=== PATIENT | male | born 1970 | race Caucasian/White ===

== ENCOUNTER 2023-04-26 16:50 | Inpatient (IN) ==
[2023-04-26] MEDS ORDERED: IOPAMIDOL 100 ML BOTTLE IV ONE (16:51)
[2023-04-26 17:38] LABS: Basophils # (Auto) 0.02 K/mcL (0.00-0.30); Basophils % (Auto) 0.2 % (0.0-2.0); Eosinophils # (Auto) 0 K/mcL (0.00-0.70); Eosinophils % (Auto) 0 % (0.0-7.0); Hematocrit 40.2 % (40.1-51.0); Hemoglobin 12.7 g/dL (13.7-17.5); Lymphocytes # (Auto) 0.83 K/mcL (1.50-4.80); Lymphocytes % (Auto) 8.2 % (15.5-49.0); Mean Cell Volume 92.2 fL (80.0-100.0); Mean Corpuscular HGB Conc 31.6 g/dL (31.0-36.0); Mean Platelet Volume 8.2 fL (8.8-12.5); Monocytes # (Auto) 0.41 K/mcL (0.10-0.90); Neutrophils % (Auto) 87.5 % (38.0-78.0); Platelet Count 417 K/mcL (140-440); RBC 4.36 M/mcL (4.63-6.08); Red Cell Distribution Width 13.4 % (11.5-14.5); WBC 10.2 K/mcL (4.5-11.0)
[2023-04-26 17:59] LABS: ALT/SGPT 10 U/L (<40); AST/SGOT 26 U/L (<40); Albumin 3.9 gm/dL (3.2-5.2); Albumin/Globulin Ratio 1.6 (1.0-2.3); Alkaline Phosphatase 91 U/L (39-117); Bilirubin,Total < 0.2 mg/dL (0.1-1.0); Blood Urea Nitrogen 15 mg/dL (6-20); Calcium 8.8 mg/dL (8.6-10.4); Carbon Dioxide 24 mmol/L (22-30); Chloride 103 mmol/L (96-108); Globulin 2.5 gm/dL (2.2-3.7); Glomerular Filtration Rate 84; Glucose 109 mg/dL (70-105)
[2023-04-26 19:03] LABS: proBNP 53.6 pg/mL (<125.0)
[2023-04-26] MEDS: cefTRIAXone 1 GM VIAL IV ONE (19:40)
[2023-04-26] MEDS: 0.9 % SODIUM CHLORIDE 1,000 ML IV ONE (19:40)
[2023-04-26] MEDS: ONDANSETRON 4 MG/2 ML VIAL IV ONE (20:00)
[2023-04-26] MEDS: AMOXICILLIN/POTASSIUM CLAV 875 MG TABLET PO ONE (20:01)
[2023-04-26] MEDS: AZITHROMYCIN 250 MG TABLET PO ONE (20:01)
[2023-04-26] MEDS ORDERED: MAGNESIUM SULFATE 2 GM/50 ML BAG IV PRN (23:09)
[2023-04-26] MEDS ORDERED: BISACODYL 10 MG SUPP.RECT PR PRN (23:09)
[2023-04-26] MEDS ORDERED: ONDANSETRON 4 MG ODT TABLET SL PRN (23:09)
[2023-04-26] MEDS ORDERED: POTASSIUM CHLORIDE 20 MEQ PACKET PO PRN (23:09)
[2023-04-26] MEDS ORDERED: POLYETHYLENE GLYCOL 3350 17 GM PACKET PO PRN (23:09)
[2023-04-26] MEDS ORDERED: ONDANSETRON 4 MG/2 ML VIAL IV PRN (23:09)
[2023-04-26] MEDS: 0.9 % SODIUM CHLORIDE 1,000 ML IV SCH (23:20)
[2023-04-26] MEDS: HYDROcodone/APAP 5/325MG TABLET PO PRN (23:51)
[2023-04-26] MEDS: HYDROcodone/APAP 5/325MG TABLET PO ONE (23:51)
[2023-04-27] MEDS: cefTRIAXone 2 GM in DEXTROSE 5% IN WATER 50 ML IV SCH ×2 (00:20→09:02)
[2023-04-27] MEDS: AZITHROMYCIN 500 MG in DEXTROSE 5% IN WATER 250 ML IV SCH ×2 (00:20→09:02)
[2023-04-27] MEDS: 0.9 % SODIUM CHLORIDE 10 ML SYRINGE IV SCH (05:01)
[2023-04-27 06:09] LABS: Basophils # (Auto) 0.02 K/mcL (0.00-0.30); Basophils % (Auto) 0.2 % (0.0-2.0); Eosinophils # (Auto) 0.01 K/mcL (0.00-0.70); Eosinophils % (Auto) 0.1 % (0.0-7.0); Hematocrit 35.2 % (40.1-51.0); Hemoglobin 11.2 g/dL (13.7-17.5); Lymphocytes # (Auto) 1.11 K/mcL (1.50-4.80); Lymphocytes % (Auto) 9.2 % (15.5-49.0); Mean Cell Volume 92.4 fL (80.0-100.0); Mean Corpuscular HGB Conc 31.8 g/dL (31.0-36.0); Mean Platelet Volume 8.7 fL (8.8-12.5); Neutrophils % (Auto) 85.3 % (38.0-78.0); Platelet Count 319 K/mcL (140-440); RBC 3.81 M/mcL (4.63-6.08); Red Cell Distribution Width 13.8 % (11.5-14.5)
[2023-04-27 06:47] LABS: ALT/SGPT 7 U/L (<40); AST/SGOT 27 U/L (<40); Albumin 3.1 gm/dL (3.2-5.2); Albumin/Globulin Ratio 1.6 (1.0-2.3); Alkaline Phosphatase 63 U/L (39-117); Bilirubin,Direct < 0.2 mg/dL (0-0.3); Bilirubin,Total 0.3 mg/dL (0.1-1.0); Blood Urea Nitrogen 11 mg/dL (6-20); Calcium 8.3 mg/dL (8.6-10.4); Carbon Dioxide 24 mmol/L (22-30); Chloride 105 mmol/L (96-108); Globulin 1.9 gm/dL (2.2-3.7); Glomerular Filtration Rate 106; Glucose 98 mg/dL (70-105); Lactate Dehydrogenase 149 U/L (135-225); Phosphorous 3.7 mg/dL (2.5-4.5); Triglycerides 30 mg/dL (<150); Uric Acid 4.6 mg/dL (2.5-8.0)
[2023-04-27] MEDS: BUDESONIDE 0.5 MG/2 ML AMPUL.NEB NEB SCH (08:10)
[2023-04-27] MEDS: ENOXAPARIN 40 MG/0.4 ML SYRINGE SQ SCH (08:24)
[2023-04-27] MEDS: DOCUSATE SODIUM 100 MG CAPSULE PO SCH (08:24)
[2023-04-27] MEDS: cefTRIAXone 2 GM VIAL ONE (09:23)
[2023-04-27] MEDS: MULTIVIT,THER IRON,CA,FA & MIN 1 TABLET PO SCH (09:24)
[2023-04-27] MEDS: NICOTINE 21 MG PATCH TOPICAL SCH (10:06)
[2023-04-27] MEDS: ACETAMINOPHEN 650 MG/65 ML BAG IV PRN (11:34)
[2023-04-27] MEDS: guaiFENesin/CODEINE 10 ML UDC PO PRN (17:26)
[2023-04-27] MEDS: IPRATROPIUM/ALBUTEROL 3 ML AMPUL.NEB NEB PRN (19:37)
[2023-04-27] MEDS: SENNOSIDES/DOCUSATE SODIUM 1 TAB TABLET PO SCH (21:01)
[2023-04-28] MEDS: ACETAMINOPHEN 325 MG TABLET PO PRN (01:02)
[2023-04-28 06:07] LABS: Basophils # (Auto) 0.06 K/mcL (0.00-0.30); Basophils % (Auto) 0.5 % (0.0-2.0); Eosinophils # (Auto) 0.23 K/mcL (0.00-0.70); Eosinophils % (Auto) 1.8 % (0.0-7.0); Hematocrit 34.6 % (40.1-51.0); Hemoglobin 10.7 g/dL (13.7-17.5); Lymphocytes # (Auto) 1.16 K/mcL (1.50-4.80); Lymphocytes % (Auto) 8.9 % (15.5-49.0); Mean Corpuscular HGB Conc 30.9 g/dL (31.0-36.0); Mean Platelet Volume 9.1 fL (8.8-12.5); Monocytes % (Auto) 6.9 % (1.0-12.0); Neutrophils % (Auto) 81.5 % (38.0-78.0); Platelet Count 330 K/mcL (140-440); RBC 3.72 M/mcL (4.63-6.08); Red Cell Distribution Width 13.8 % (11.5-14.5)
[2023-04-28 06:17] LABS: ALT/SGPT 6 U/L (<40); AST/SGOT 16 U/L (<40); Albumin/Globulin Ratio 1.3 (1.0-2.3); Alkaline Phosphatase 73 U/L (39-117); Bilirubin,Direct < 0.2 mg/dL (0-0.3); Bilirubin,Total 0.2 mg/dL (0.1-1.0); Blood Urea Nitrogen 9 mg/dL (6-20); Calcium 8.6 mg/dL (8.6-10.4); Carbon Dioxide 26 mmol/L (22-30); Chloride 107 mmol/L (96-108); Globulin 2.3 gm/dL (2.2-3.7); Glomerular Filtration Rate 113; Glucose 95 mg/dL (70-105); Lactate Dehydrogenase 137 U/L (135-225); Phosphorous 1.5 mg/dL (2.5-4.5); Triglycerides 78 mg/dL (<150); Uric Acid 3.4 mg/dL (2.5-8.0)
[2023-04-28 08:45] LABS: Band Neutrophils % 19 % (0-10); Eosinophils % (Manual) 1 % (0-7); Lymphocytes % 11 % (15-49); Monocytes % (Manual) 3 % (1-12); Platelet Estimate NORMAL (Normal); RBC Morphology NORMAL (Normal); Segmented Neutrophils % 66 % (38-78)
[2023-04-28] MEDS: PHOSPHORUS 250 MG TABLET PO SCH (09:28)
[2023-04-28] MEDS: NEUTRA PHOS 1 PACKET PO SCH (09:29)
[2023-04-28] MEDS: CEFEPIME 2 GM VIAL IV SCH (10:30)
[2023-04-28] MEDS: methylPREDNISolone SOD SUCC 125 MG/2 ML VIAL IV ONE (10:30)
[2023-04-28] MEDS ORDERED: VANCOMYCIN PER PHARMACY IV SCH (14:08)
[2023-04-28] MEDS: VANCOMYCIN 1,000 MG in 0.9 % SODIUM CHLORIDE 250 ML IV SCH (14:54)
[2023-04-28] MEDS: MELATONIN 3 MG TABLET PO PRN (20:39)
[2023-04-28] MEDS: MUPIROCIN OINT 2% 22GM NARES SCH (21:42)
[2023-04-29 05:46] LABS: Hematocrit 32.5 % (40.1-51.0); Hemoglobin 10.5 g/dL (13.7-17.5); Mean Corpuscular HGB Conc 32.3 g/dL (31.0-36.0); Mean Platelet Volume 8.8 fL (8.8-12.5); Platelet Count 336 K/mcL (140-440); RBC 3.57 M/mcL (4.63-6.08); Red Cell Distribution Width 14.1 % (11.5-14.5)
[2023-04-29 06:32] LABS: ALT/SGPT 9 U/L (<40); AST/SGOT 13 U/L (<40); Albumin 3.1 gm/dL (3.2-5.2); Albumin/Globulin Ratio 1.2 (1.0-2.3); Alkaline Phosphatase 83 U/L (39-117); Bilirubin,Direct < 0.2 mg/dL (0-0.3); Bilirubin,Total < 0.2 mg/dL (0.1-1.0); Blood Urea Nitrogen 12 mg/dL (6-20); Calcium 8.9 mg/dL (8.6-10.4); Carbon Dioxide 24 mmol/L (22-30); Chloride 106 mmol/L (96-108); Globulin 2.6 gm/dL (2.2-3.7); Glomerular Filtration Rate 113; Glucose 118 mg/dL (70-105); Lactate Dehydrogenase 130 U/L (135-225); Phosphorous 3.5 mg/dL (2.5-4.5); Triglycerides 60 mg/dL (<150); Uric Acid 2.6 mg/dL (2.5-8.0)
[2023-04-29 06:38] LABS: Band Neutrophils % 10 % (0-10); Eosinophils % (Manual) 1 % (0-7); Lymphocytes % 8 % (15-49); Monocytes % (Manual) 5 % (1-12); Platelet Estimate NORMAL (Normal); RBC Morphology NORMAL (Normal); Segmented Neutrophils % 76 % (38-78)
[2023-04-29] MEDS: predniSONE 20 MG TABLET PO SCH (08:34)
[2023-04-29] MEDS: FLUZONE QUAD QS2023-24/PF 60 MCG/0.5 ML SYRINGE IM ONE (09:17)
[2023-04-29] MEDS: PNEUMOCOCCAL 23-VAL P-SAC VAC 0.5 ML SYRINGE IM ONE (09:18)
[2023-04-30 06:30] LABS: Basophils # (Auto) 0.06 K/mcL (0.00-0.30); Basophils % (Auto) 0.4 % (0.0-2.0); Eosinophils # (Auto) 0.05 K/mcL (0.00-0.70); Eosinophils % (Auto) 0.3 % (0.0-7.0); Hematocrit 34.7 % (40.1-51.0); Lymphocytes # (Auto) 2.48 K/mcL (1.50-4.80); Lymphocytes % (Auto) 16.4 % (15.5-49.0); Mean Cell Volume 91.8 fL (80.0-100.0); Mean Corpuscular HGB Conc 31.7 g/dL (31.0-36.0); Mean Platelet Volume 8.8 fL (8.8-12.5); Monocytes # (Auto) 1.04 K/mcL (0.10-0.90); Monocytes % (Auto) 6.9 % (1.0-12.0); Neutrophils % (Auto) 75.1 % (38.0-78.0); Platelet Count 405 K/mcL (140-440); RBC 3.78 M/mcL (4.63-6.08); Red Cell Distribution Width 14.3 % (11.5-14.5); WBC 15.1 K/mcL (4.5-11.0)
[2023-04-30 08:53] LABS: Band Neutrophils % 8 % (0-10); Eosinophils % (Manual) 1 % (0-7); Lymphocytes % 21 % (15-49); Monocytes % (Manual) 7 % (1-12); Platelet Estimate NORMAL (Normal); RBC Morphology NORMAL (Normal); Segmented Neutrophils % 63 % (38-78)
[2023-04-30 11:10] LABS: Legionella pneumophilia Ag, Ur Negative (Negative)
== END 2023-04-30 11:45 | disposition home or self-care (01) | DRG 871 ==
LOC: ED 16:50 → MEDSUR 22:59
PROVIDERS: ADMIT Internal Medicine; ATTEND Internal Medicine